=== PATIENT | male | born 1970 | race American Indian/Alaskan Native ===

== ENCOUNTER 2021-05-23 03:41 | Emergency (ER) | payer OTHER ==
--- NOTE | 2021-05-23 06:54 | XRay Report ---
XR chest routine 2V INDICATION / CLINICAL INFORMATION: dizziness. COMPARISON: None available. FINDINGS: SUPPORT DEVICES: None. HEART /PULMONARY VASCULATURE: No significant abnormality. LUNGS / PLEURA: No significant pulmonary or pleural abnormality. No pneumothorax. ADDITIONAL FINDINGS: No significant additional findings. IMPRESSION: 1. No acute findings. Signer Name: Marshal Segura MD Signed: 05/23/2021 6:50 AM Workstation Name: [id number]
--- NOTE | 2021-05-23 07:07 | Emergency Department Report ---
ED Dizziness HPI - General Chief Complaint: Dizziness Stated Complaint: DIZZINESS AND NAUSEA Time Seen by Provider: 05/23/21 07:04 Source: EMS Mode of arrival: Stretcher Limitations: No Limitations - History of Present Illness Initial Comments: 51-year-old -Australian male with no past medical history and currently takes no meds presents to the emergency room complaining of the room is spinning since yesterday evening. Patient states that he had a heavy sodium meal of homemade soup. Patient states he laid down had some popcorn and he proceeded to go to sleep woke up approximately 3 AM with nausea and feeling like the room is spinning. Patient felt that his blood pressure was elevated and took one of his 's blood pressure pill that had a hydrochlorothiazide added. Patient states since then he has been going to the bathroom more. States that he still feels like the room is spinning in nausea but is starting to improve. Denies any head injury no chest pain or shortness of breath. He does report suffering from sinus issues which is chronic for him. Denies any lower leg edema no cough. MD Complaint: dizziness -: Last night Timing: gradual onset History of Same: Yes (Once before in the past but was not diagnosed with anysun g) History of Trauma: No Severity: mild Improves With: nothing Worsens With: movement, position Associated Symptoms: denies: ataxia, chest pain, confusion, cough, diaphoresis, fever/chills, loss of appetite, malaise, seizure, shortness of breath, syncope, weakness - Related Data Previous Rx's Medication Instructions Recorded Last Taken Type amLODIPine 5 mg PO DAILY #30 tab 05/23/21 Unknown Rx hydrOXYzine HCL [Atarax] 25 mg PO Q6HR PRN #20 tablet 05/23/21 Unknown Rx Allergies Allergy/AdvReac Type Severity Reaction Status Date / Time No Known Allergies Allergy Verified 05/23/21 03:51 ED Review of Systems ROS: Stated complaint: DIZZINESS AND NAUSEA Other details as noted in HPI Comment: All other systems reviewed and negative ED Past Medical Hx - Past Medical History Previous Medical History?: No - Surgical History Past Surgical History?: No - Social History Smoking Status: Unknown if ever smoked Substance Use Type: None - Medications Home Medications: Home Medications Medication Instructions Recorded Confirmed Last Taken Type amLODIPine 5 mg PO DAILY #30 tab 05/23/21 Unknown Rx hydrOXYzine HCL [Atarax] 25 mg PO Q6HR PRN #20 tablet 05/23/21 Unknown Rx ED Physical Exam - General Limitations: No Limitations General appearance: alert, in no apparent distress - Head Head exam: Present: atraumatic, normocephalic - Eye Eye exam: Present: normal appearance - ENT ENT exam: Present: mucous membranes moist - Neck Neck exam: Present: normal inspection - Respiratory Respiratory exam: Present: normal lung sounds bilaterally. Absent: respiratory distress - Cardiovascular Cardiovascular Exam: Present: regular rate, normal rhythm. Absent: systolic murmur, diastolic murmur, rubs, gallop - GI/Abdominal GI/Abdominal exam: Present: soft, normal bowel sounds - Rectal Rectal exam: Present: deferred - Extremities Exam Extremities exam: Present: normal inspection - Back Exam Back exam: Present: normal inspection - Neurological Exam Neurological exam: Present: alert, oriented X3 - Expanded Neurological Exam Expanded Patient oriented to: Present: person, place Cranial nerves: EOM's Intact: Normal, Gag Reflex: Normal, Tongue Deviation: Normal, Nystagmus: Normal, Facial Sensation: Normal, Facial Palsy with Forehead Movement: Normal, Facial Palsy without Forehead Movement: Normal Cerebellar function: Finger to Nose: Normal, Heel to Carvalho: Normal, Romberg: Normal Upper motor neuron: Jewel Neglect: Normal, Pronator Drift: Normal, Babinski Sign: Normal, Sensory Extinction: Normal Sensory exam: Upper Extremity Light Touch: Normal, Upper Extremity Pin Prick: Normal, Upper Extremity Temperature: Normal, UE 2 Point Discrimination: Normal, Lower Extremity Light Touch: Normal, Lower Extremity Pin Prick: Normal, Lower Extremity Temperature: Normal, LE 2 Point Discrimination: Normal Motor strength exam: RUE: 5, LUE: 5, RLE: 5, LLE: 5 Best Eye Response ([place]): (4) open spontaneously Best Motor Response (Lila): (6) obeys commands Best Verbal Response (Lila): (5) oriented Lila Total: 15 - Psychiatric Psychiatric exam: Present: normal affect, normal mood - Skin Skin exam: Present: warm, dry, intact, normal color. Absent: rash ED Course Vital Signs 05/23/21 03:51 Temperature 98.4 F Pulse Rate 83 Respiratory 18 Rate Blood Pressure 165/101 [Left] O2 Sat by Pulse 99 Oximetry ED Medical Decision Making - Lab Data Lab Results 05/23/21 05/23/21 05/23/21 Range/Units 06:33 06:53 06:53 WBC 6.8 (4.5-11.0) K/mm3 RBC 4.90 (3.65-5.03) M/mm3 Hgb 14.5 (11.8-15.2) gm/dl Hct 44.7 (35.5-45.6) % MCV 91 (84-94) fl MCH 30 (28-32) pg MCHC 33 (32-34) % RDW 13.7 (13.2-15.2) % Plt Count 313 (140-440) K/mm3 Lymph % (Auto) 15.6 (13.4-35.0) % [place] % (Auto) 4.5 (0.0-7.3) % Eos % (Auto) 0.1 (0.0-4.3) % Baso % (Auto) 0.4 (0.0-1.8) % Lymph # (Auto) 1.1 L (1.2-5.4) K/mm3 [place] # (Auto) 0.3 (0.0-0.8) K/mm3 Eos # (Auto) 0.0 (0.0-0.4) K/mm3 Baso # (Auto) 0.0 (0.0-0.1) K/mm3 Seg Neutrophils % 79.4 H (40.0-70.0) % Seg Neutrophils # 5.4 (1.8-7.7) K/mm3 Sodium (137-145) mmol/L Potassium (3.6-5.0) mmol/L Chloride (98-107) mmol/L Carbon Dioxide (22-30) mmol/L Anion Gap mmol/L BUN (9-20) mg/dL Creatinine (0.8-1.3) mg/dL Estimated GFR ml/min BUN/Creatinine Ratio % Glucose (75-100) mg/dL Calcium (8.4-10.2) mg/dL Total Bilirubin (0.1-1.2) mg/dL AST (5-40) units/L ALT (7-56) units/L Alkaline Phosphatase (35-129) units/L Troponin T 0.010 (0.00-0.029) ng/mL Total Protein (6.3-8.2) g/dL Albumin (3.9-5) g/dL Albumin/Globulin Ratio % Urine Color Straw (Yellow) Urine Turbidity Clear (Clear) Urine pH 7.0 (5.0-7.0) Ur Specific [place] 1.012 (1.003-1.030) Urine Protein <15 mg/dl (Negative) mg/dL Urine Glucose (UA) Negative (Negative) mg/dL Urine Ketones Negative (Negative) mg/dL Urine Blood Negative (Negative) Urine Nitrite Negative (Negative) Urine Bilirubin Negative (Negative) Urine Urobilinogen < 2.0 (<2.0) mg/dL Ur Leukocyte Esterase Negative (Negative) Urine WBC (Auto) 1.0 (0.0-6.0) /HPF Urine RBC (Auto) 2.0 (0.0-6.0) /HPF Urine Mucus Few /HPF 05/23/21 Range/Units 06:53 WBC (4.5-11.0) K/mm3 RBC (3.65-5.03) M/mm3 Hgb (11.8-15.2) gm/dl Hct (35.5-45.6) % MCV (84-94) fl MCH (28-32) pg MCHC (32-34) % RDW (13.2-15.2) % Plt Count (140-440) K/mm3 Lymph % (Auto) (13.4-35.0) % [place] % (Auto) (0.0-7.3) % Eos % (Auto) (0.0-4.3) % Baso % (Auto) (0.0-1.8) % Lymph # (Auto) (1.2-5.4) K/mm3 [place] # (Auto) (0.0-0.8) K/mm3 Eos # (Auto) (0.0-0.4) K/mm3 Baso # (Auto) (0.0-0.1) K/mm3 Seg Neutrophils % (40.0-70.0) % Seg Neutrophils # (1.8-7.7) K/mm3 Sodium 138 (137-145) mmol/L Potassium 5.3 H (3.6-5.0) mmol/L Chloride 99.8 (98-107) mmol/L Carbon Dioxide 25 (22-30) mmol/L Anion Gap 19 mmol/L BUN 8 L (9-20) mg/dL Creatinine 0.9 (0.8-1.3) mg/dL Estimated GFR > 60 ml/min BUN/Creatinine Ratio 9 % Glucose 129 H (75-100) mg/dL Calcium 9.4 (8.4-10.2) mg/dL Total Bilirubin 0.50 (0.1-1.2) mg/dL AST 14 (5-40) units/L ALT 16 (7-56) units/L Alkaline Phosphatase 45 (35-129) units/L Troponin T (0.00-0.029) ng/mL Total Protein 7.9 (6.3-8.2) g/dL Albumin 4.3 (3.9-5) g/dL Albumin/Globulin Ratio 1.0 % Urine Color (Yellow) Urine Turbidity (Clear) Urine pH (5.0-7.0) Ur Specific [place] (1.003-1.030) Urine Protein (Negative) mg/dL Urine Glucose (UA) (Negative) mg/dL Urine Ketones (Negative) mg/dL Urine Blood (Negative) Urine Nitrite (Negative) Urine Bilirubin (Negative) Urine Urobilinogen (<2.0) mg/dL Ur Leukocyte Esterase (Negative) Urine WBC (Auto) (0.0-6.0) /HPF Urine RBC (Auto) (0.0-6.0) /HPF Urine Mucus /HPF - Radiology Data Radiology results: report reviewed [facility] [address] [place] [address] XRay Report Signed Patient: KISHA KEATING MR#: [id number] : 1970 Acct:[id number] Age/Sex: 51 / M ADM Date: 05/23/21 Loc: ED Attending Dr: Ordering Physician: JESSICA GUNN NP Date of Service: 05/23/21 Procedure(s): XR chest routine 2V Accession Number(s): [id number] cc: JESSICA GUNN NP Fluoro Time In Minutes: XR chest routine 2V INDICATION / CLINICAL INFORMATION: dizziness. COMPARISON: None available. FINDINGS: SUPPORT DEVICES: None. HEART /PULMONARY VASCULATURE: No significant abnormality. LUNGS / PLEURA: No significant pulmonary or pleural abnormality. No pneumothorax. ADDITIONAL FINDINGS: No significant additional findings. IMPRESSION: 1. No acute findings. Signer Name: Sarah Beth Segura MD Signed: 05/23/2021 6:50 AM Workstation Name: [id number] Transcribed By: MYRTLE Dictated By: SARAH BETH SEGURA MD Electronically Authenticated By: SARAH BETH SEGURA MD Signed Date/Time: 05/23/21649 DD/ 9 TD/TT: - Medical Decision Making 51-year-old -Australian male with no past medical history and currently takes no meds presents to the emergency room complaining of the room is spinning since yesterday evening. Patient states that he had a heavy sodium meal of homemade soup. Patient states he laid down had some popcorn and he proceeded to go to sleep woke up approximately 3 AM with nausea and feeling like the room is spinning. Patient felt that his blood pressure was elevated and took one of his 's blood pressure pill that had a hydrochlorothiazide added. Patient states since then he has been going to the bathroom more. States that he still feels like the room is spinning in nausea but is starting to improve. Denies any head injury no chest pain or shortness of breath. He does report suffering from sinus issues which is chronic for him. Denies any lower leg edema no cough. Patient symptoms appear to be vertigo but will check a EKG which shows no STEMI, chest x-ray is done shows no acute abnormalities. Labs are pending. Urinalysis he is nonactionable. Patient was given something for nausea. Critical care attestation.: If time is entered above; I have spent that time in minutes in the direct care of this critically ill patient, excluding procedure time. ED Disposition Clinical Impression: Vertigo, Hypertension Disposition: HOME / SELF CARE / HOMELESS Is pt being admited?: No Does the pt Need Aspirin: No Condition: Stable Instructions: Hypertension (ED), How to Perform the Carlito Maneuver, Hypertension, Adult, [id number] Additional Instructions: Labs are stable. I would like to start you on blood pressure medication called amlodipine 5 mg daily. Medication for vertigo is Atarax he can take it every 6 hours. Very important you follow-up with your primary care provider. Return back to the emergency room with any worsening symptoms. Prescriptions: amLODIPine 5 mg PO DAILY #30 tab hydrOXYzine HCL [Atarax] 25 mg PO Q6HR PRN #20 tablet PRN Reason: Vertigo Referrals: YOLANDA CHINO MD [Primary Care Provider] - 3-5 Days Forms: Work/School Release Form(ED), Accompanied Note Time of Disposition: 09:21
[2021-05-23 07:30] LABS: Bilirubin,Urine Negative (Negative); Blood,Urine Negative (Negative); Color,Urine Straw (Yellow); Protein,Urine <15 mg/dL mg/dL (Negative); Urobilinogen,Urine < 2.0 mg/dL (<2.0)
[2021-05-23 07:31] LABS: Mucus,Urine Few /HPF
[2021-05-23] MEDS ORDERED: diphenhydrAMINE 25 MG CAP PO ONE (07:55)
[2021-05-23] MEDS ORDERED: ONDANSETRON 4 MG ODT TAB PO ONE (07:55)
[2021-05-23 08:27] LABS: Eosinophils % (Auto) 0.1 % (0.0-4.3); Hematocrit 44.7 % (35.5-45.6); Hemoglobin 14.5 gm/dl (11.8-15.2); Lymphocytes % (Auto) 15.6 % (13.4-35.0); Mean Corpuscular HGB Conc 33 % (32-34); Mean Corpuscular Volume 91 fl (84-94); Monocytes % (Auto) 4.5 % (0.0-7.3); Platelet Count 313 K/mm3 (140-440); Red Cell Distribution Width 13.7 % (13.2-15.2)
[2021-05-23 08:28] LABS: Basophils % (Auto) 0.4 % (0.0-1.8); Lymphocytes # (Auto) 1.1 K/mm3 (1.2-5.4); Monocytes # (Auto) 0.3 K/mm3 (0.0-0.8)
[2021-05-23 08:30] LABS: Blood Urea Nitrogen 8 mg/dL (9-20)
[2021-05-23 08:31] LABS: Alanine Aminotransferase 16 units/L (7-56); Albumin 4.3 g/dL (3.9-5); BUN/Creatinine Ratio 9; Calcium 9.4 mg/dL (8.4-10.2); Hemolysis Index 9
[2021-05-23 09:40] VITALS: BP 150/90
--- NOTE | 2021-05-23 10:59 | Electrocardiograph Report ---
[facility] Test Date: 2021-05-23 Test Time: 06:36:40 Pat Name: KISHA KEATING Department: Room: Gender: M [employer] Application Support Specialist: : 1970 Requested By: JESSICA GUNN Order Number: [id number] Reading MD: Danny Romano Measurements Intervals [place] Rate: 64 P: 61 UT: 220 QRS: 64 QRSD: 94 T: 32 QT: 396 QTc: 408 Interpretive Statements Sinus rhythm Prolonged UT interval Probable left atrial enlargement Probable left ventricular hypertrophy No previous ECG available for comparison Electronically Signed On 05-23-2021 10:58:22 EST by Danny Romano
== END 2021-05-23 09:42 | disposition home or self-care (01) ==
LOC: ED 03:41
DX: R42 Dizziness and giddiness (principal); I10 Essential (primary) hypertension
CPT/HCPCS: 36415; 71046; 80053; 81001; 84484; 85025; 93005; 99284; J3490; Q0162